=== PATIENT | female | born 2005 | race Caucasian/White ===

== ENCOUNTER → 2024-09-03 | Day surgery (SDC) | payer OTHER ==
[~2024-09-03] MED LIST: ACETAMINOPHEN 1000 MG/100 ML 100 ML IV ONE; EPINEPHRINE HCL 1:1000 1ML 1 MG/ML AMP ONE; LARIN 21 1-201 EACH PO; LIDOCAINE 1% W/EPINEPHRINE 20 ML VIAL ONE; LORATADINE10 MG PO; SUGAMMADEX SODIUM 200 MG/2 ML VIAL IV ONE
[2024-09-03] MEDS: LACTATED RINGER'S 1,000 ML ONE (06:45)
[2024-09-03 10:43] VITALS: BP 137/86; PULSE 84; RESP 18; O2SAT 98
== END | disposition home or self-care (01) ==
LOC: OR 06:20
PROVIDERS: ATTEND Otolaryngology Otolaryngology/Facial Plastic Surgery
DX: J34.2 Deviated nasal septum (principal); J34.89 Other specified disorders of nose and nasal sinuses; R09.82 Postnasal drip; E66.01 Morbid (severe) obesity due to excess calories; Z79.899 Other long term (current) drug therapy
CPT/HCPCS: 30520; 81025; 88302; 88311; J0131; J0171; J7121; 88300